=== PATIENT | male | born 1975 | race Caucasian/White ===

== ENCOUNTER → 2017-01-05 | Outpatient (CLI) | payer BC ==
--- NOTE | 2017-01-06 10:21 | ECHOF ---
Referral Reason:R06.00 Dyspnea, R07.9 Chest pain MEASUREMENTS -------- HEIGHT: 180.3 cm WEIGHT: 124.7 kg BP: 131/70 IVSd: 1.2 cm (0.6 - 1.1) LVIDd: 4.2 cm (3.9 - 5.3) LVPWd: 1.2 cm (0.6 - 1.1) IVSs: 1.8 cm LVIDs: 2.3 cm LVPWs: 1.9 cm Ao Diam: 3.1 cm (2.0 - 3.7) AV Cusp: 2.3 cm (1.5 - 2.6) LA Diam: 3.4 cm (2.7 - 3.8) MV EXCURSION: 17.007 mm (> 18.000) MV EF SLOPE: 125 mm/s (70 - 150) EPSS: 0.2 cm MV E Juno: 0.66 m/s MV DecT: 291 ms MV A Juno: 0.39 m/s MV E/A Ratio: 1.68 RAP: 5.00 mmHg RVSP: 17.87 mmHg FINDINGS -------- Sinus rhythm. This was a technically good study. There is mild concentric left ventricular hypertrophy. Overall left ventricular systolic function is normal with, an EF between 55 - 60 %. The right ventricle is normal in size and function. The left atrium is normal in size. The right atrium is normal in size. The aortic valve is trileaflet and appears structurally normal. There is trace to mild mitral regurgitation. Trace tricuspid regurgitation present. The right ventricular systolic pressure, as measured by Doppler, is 17.87mmHg. Pulmonic valve appears structurally normal. The aortic root size is normal. The pericardium is normal. CONCLUSIONS -------- 1. Sinus rhythm. 2. Trace tricuspid regurgitation present. 3. The right ventricular systolic pressure, as measured by Doppler, is 17.87mmHg. 4. Pulmonic valve appears structurally normal. 5. The aortic root size is normal. 6. The pericardium is normal. 7. This was a technically good study. 8. There is mild concentric left ventricular hypertrophy. 9. Overall left ventricular systolic function is normal with, an EF between 55 - 60 %. 10. The right ventricle is normal in size and function. 11. The left atrium is normal in size. 12. The right atrium is normal in size. 13. The aortic valve is trileaflet and appears structurally normal. 14. There is trace to mild mitral regurgitation. AREA COUNSELOR: Lilian Smith RDCS
== END | disposition home or self-care (01) ==
LOC: RADECHMAIN 15:33
PROVIDERS: ATTEND Family Medicine
DX: I08.1 Rheumatic disorders of both mitral and tricuspid valves (principal)
CPT/HCPCS: 93306

== ENCOUNTER → 2017-01-17 | Outpatient (CLI) | payer BC ==
--- NOTE | 2017-01-17 11:35 | ECHOS ---
DATE OF SERVICE: 01/17/2017 AGE: 41Y SEX: M HT: 72 WT: 278 lbs. Protocol Khai: X Others: Stress Echo Stage: IV Dur. of Exercise: 9:30 *Heart Rate Blood Pressure *Rest: 82 Rest: 111/59 * *Max. Achieved: 161 Maximum BP: 160/70 85% PMHR: 153 100% PMHR: 180 *METS: 10.4 INDICATIONS: Chest pain. MEDICATIONS: Patient was exercised for a total period of 9 minutes and 30 seconds. Peak heart rate of 161 was achieved. Maximum blood pressure 160/70 mmHg was noted. Resting EKG shows normal sinus rhythm with normal AK interval and QRS duration and normal ST-T waves. No ST segment depression suggestive of ischemia is noted. No dysrhythmias are noted. The baseline echocardiographic images reveal normal left ventricular chamber size with normal left ventricular systolic function. In the immediate postexercise period, normal increase in the wall thickness and contractility is noted. FINAL IMPRESSION: This stress echocardiographic study is negative for stress-induced ischemia. Patient's exercise tolerance is normal. EKG portion of the stress test is not suggestive of ischemia.
== END | disposition home or self-care (01) ==
LOC: RADNMMAIN 09:43
PROVIDERS: ATTEND Family Medicine
DX: R06.00 Dyspnea, unspecified (principal)
CPT/HCPCS: 93350; 93017; Q9957

== ENCOUNTER → 2018-12-21 | Outpatient (CLI) | payer BC ==
--- NOTE | 2018-12-21 10:57 | XR ---
EXAMINATION TYPE: XR orbit detect foreign body DATE OF EXAM: 12/21/2018 COMPARISON: NONE HISTORY: Pre-MRI orbit TECHNIQUE: 3 views of the orbits submitted FINDINGS: No metallic foreign body overlying the orbits. Osseous structures intact. IMPRESSION: No metallic body overlying the orbits.
== END | disposition home or self-care (01) ==
LOC: RADXRMAIN 10:28
PROVIDERS: ATTEND Orthopaedic Surgery
DX: Z01.818 Encounter for other preprocedural examination (principal); Z87.821 Personal history of retained foreign body fully removed
CPT/HCPCS: 70030

== ENCOUNTER → 2019-08-08 | Outpatient (CLI) | payer BC ==
--- NOTE | 2019-08-08 09:28 | US ---
EXAMINATION TYPE: US gallbladder DATE OF EXAM: 08/08/2019 COMPARISON: NONE CLINICAL HISTORY: R10.11 Rt Upper quadrant Pain. EXAM MEASUREMENTS: Liver Length: 17.9 cm Gallbladder Wall: 0.2 cm CBD: 0.4 cm Right Kidney: 11.7 x 4.7 x 5.4 cm Patient of large body habitus with severe overlying bowel gas, technically difficult study. Pancreas: Obscured by bowel gas Liver: Increased attenuation, decreased visualization of vessels suggestive of fatty infiltrate, upp er limits of normal in size. Gallbladder: wnl somewhat limited visualization Evidence for sonographic Pritchard's sign: no CBD: wnl Right Kidney: Inferior pole obscured by overlying bowel gas IMPRESSION: Sonographic findings most commonly related to hepatic steatosis. Correlate with liver fun ction tests. No sonographic evidence of cholelithiasis nor acute cholecystitis. Pancreas is obscured by bowel gas.
== END | disposition home or self-care (01) ==
LOC: RADUSWWP 08:18
PROVIDERS: ATTEND Nurse Practitioner Family
DX: K76.0 Fatty (change of) liver, not elsewhere classified (principal)
CPT/HCPCS: 76705

== ENCOUNTER → 2019-08-27 | Outpatient (CLI) | payer BC ==
--- NOTE | 2019-08-28 08:21 | CT ---
EXAMINATION TYPE: CT abdomen pelvis wo/w con DATE OF EXAM: 08/27/2019 COMPARISON: None HISTORY: RUQ pain CT DLP: 2904 mGycm CONTRAST: CT scan of the abdomen and pelvis is performed with Oral Contrast and without and with IV Contrast, p atient injected with 100 mL of Isovue 300. FINDINGS: LUNG BASES-: 7.4 mm nodule lateral segment right middle lobe. Additional 5.8 mm nodule left lower lob e. Dedicated CT of the chest is recommended for further evaluation. No infiltrate. LIVER/GB: No calcified gallstones. Subcentimeter cyst anterior segment right hepatic lobe inferiorl y. Biliary tree is of normal caliber. PANCREAS: No inflammation. No distinct mass. SPLEEN: No splenic enlargement. No lesion seen. ADRENALS: No nodule. No thickening. KIDNEYS/BLADDER: No hydronephrosis. No nephrolithiasis. Simple cyst midpole left kidney laterally m easuring 1.1 cm. Urinary bladder grossly unremarkable. BOWEL: Normal appendix. Normal bowel caliber. No inflammation. GENITAL ORGANS: No gross abnormality. LYMPH NODES: No greater than 1cm abdominal or pelvic lymph nodes are appreciated. AORTA: No significant abnormality. OSSEOUS STRUCTURES: No significant abnormality is seen. OTHER: No significant additional abnormality is seen. IMPRESSION: 1. 7.4 mm nodule lateral segment right middle lobe. Additional 5.8 mm nodule left lower lobe. Dedicat ed CT of the chest is recommended for further evaluation. 2. Simple cyst in the left kidney as well as a small simple cyst of the liver.
== END | disposition home or self-care (01) ==
LOC: RADCTMAIN 13:55
PROVIDERS: ATTEND Family Medicine
DX: N28.1 Cyst of kidney, acquired (principal); K76.89 Other specified diseases of liver
CPT/HCPCS: 74178; Q9967

== ENCOUNTER → 2019-09-05 | Outpatient (CLI) | payer BC ==
--- NOTE | 2019-09-05 08:18 | CT ---
EXAMINATION TYPE: CT chest wo/w con DATE OF EXAM: 09/05/2019 COMPARISON: 08/27/2019 HISTORY: Abn CT abd pelvis CT DLP: 1195.3 mGycm. Automated Exposure Control for Dose Reduction was Utilized. TECHNIQUE: CT scan of the thorax is performed following without and with IV Contrast, patient inject ed with 100 mL of Isovue 300. FINDINGS: LUNGS: There is redemonstration of a solid 7 mm pulmonary nodule in the lateral segment of the right middle lobe and a solid 5 mm nodule in the superior segment of the left lower lobe on image 33. MEDIASTINUM: There are no greater than 1 cm hilar or mediastinal lymph nodes. No pericardial effusi on is seen. OTHER: No additional significant abnormality is seen. Small splenules are incidentally seen. Minimal multilevel degenerative change of the spine. IMPRESSION: The 7 mm and 5 mm pulmonary nodule seen on the CT abdomen and pelvis dated 08/27/2019 are the only nod ules identified within the lungs on for CT thorax. For multiple nodules of this size CT Thorax at 3-6 months then 18-24 months would be recommended for interval follow-up utilizing consensus criteria.
== END | disposition home or self-care (01) ==
LOC: RADCTMAIN 07:25
PROVIDERS: ATTEND Nurse Practitioner Family
DX: R91.8 Other nonspecific abnormal finding of lung field (principal)
CPT/HCPCS: 71270; Q9967

== ENCOUNTER → 2020-04-02 | Outpatient (CLI) | payer BC ==
--- NOTE | 2020-04-02 07:48 | CT ---
EXAMINATION TYPE: CT chest wo con DATE OF EXAM: 04/02/2020 COMPARISON: 09/05/2019 HISTORY: Multiple lung nodules CT DLP: 565.[address] of the chest was performed with lung and mediastinal window settings submitted. The la ck of contrast limits evaluation of the vascular, mediastinal and parenchymal structures including th e upper abdomen. LUNGS: There is redemonstration of a solid 7 mm pulmonary nodule in the lateral segment of the right middle lobe and a solid 5 mm nodule in the superior segment of the left lower lobe on image 32. No ne w pulmonary nodules identified. No evidence for infiltrate or mass. No volume loss or pleural effusio n. MEDIASTINUM/SCARLET: Thoracic aorta is of normal caliber with limited evaluation given lack of contrast . The heart is not enlarged. No evidence for mediastinal mass. No lymph nodes greater than 1cm. UPPER ABDOMEN: No significant abnormality is seen. OTHER: No significant other abnormality. IMPRESSION: 1. Stable pulmonary nodules. Follow-up in 12 months advised.
== END | disposition home or self-care (01) ==
LOC: RADCTMAIN 06:53
PROVIDERS: ATTEND Family Medicine
DX: R91.8 Other nonspecific abnormal finding of lung field (principal)
CPT/HCPCS: 71250

== ENCOUNTER → 2020-04-30 | Outpatient (CLI) | payer BC ==
--- NOTE | 2020-04-30 14:46 | US ---
EXAMINATION TYPE: US thyroid st tissue head/neck DATE OF EXAM: 04/30/2020 COMPARISON: NONE CLINICAL HISTORY: R22.1 Lump finding of the neck. At patients palpable is a probable lymph node measuring 1.2 x 0.6 x 0.9cm IMPRESSION: Lymph node noted at the site of clinical concern.
== END | disposition home or self-care (01) ==
LOC: RADUSWWP 14:12
PROVIDERS: ATTEND Family Medicine
DX: R22.1 Localized swelling, mass and lump, neck (principal)
CPT/HCPCS: 76536

== ENCOUNTER → 2021-03-08 | Outpatient (CLI) | payer BC ==
--- NOTE | 2021-03-09 05:46 | MR ---
EXAMINATION TYPE: MR shoulder RT wo con DATE OF EXAM: 03/08/2021 COMPARISON: None HISTORY: Rt shoulder pain, Decreased range of motion, unable to lift past shoulder level Multiplanar multiecho imaging of the right shoulder with no contrast. The subscapularis tendon is intact. Biceps tendon is intact. Glenoid zuleyka appear normal. I see no justino ny destructive process. Humeral head is intact. There is fairly normal signal pattern in the supraspi natus tendon. I see no evidence of rotator cuff tear. Joint fluid appears normal. There is no evidenc e of any significant subacromial impingement. The AC joint is intact. IMPRESSION: Negative exam. No evidence of rotator cuff tear.
== END | disposition home or self-care (01) ==
LOC: RADMRIMAIN 07:58
PROVIDERS: ATTEND Family Medicine
DX: M25.511 Pain in right shoulder (principal)

== ENCOUNTER 2023-01-19 08:38 | Day surgery (SDC) | payer BC ==
--- NOTE | 2023-01-19 07:55 | P.GSHP ---
History of Present Illness H&P Date: 01/19/23 CHIEF COMPLAINT: GERD and colon screen HISTORY OF PRESENT ILLNESS: The patient is a 47-year-old male who presents with gastroesophageal reflux disease and need for colon screen. Upper and lower endoscopy were offered for further evaluation and management. PAST MEDICAL HISTORY: Please see list. PAST SURGICAL HISTORY: Please see list. MEDICATIONS: Please see list. ALLERGIES: Please see list. SOCIAL HISTORY: No illicit drug use FAMILY HISTORY: No reports of Crohn disease or ulcerative colitis. REVIEW OF ORGAN SYSTEMS: CONSTITUTIONAL: No reports of fevers or chills. GI: Denies any blood in stools or constipation. PHYSICAL EXAM: VITAL SIGNS: Stable GENERAL: Well-developed pleasant in no acute distress. HEENT: No scleral icterus. Extraocular movements grossly intact. Moist buccal mucosa. NECK: Supple without lymphadenopathy. CHEST: Unlabored respirations. Equal bilateral excursions. CARDIOVASCULAR: Regular rate and rhythm. Distal 2+ pulses. ABDOMEN: Soft, nondistended. MUSCULOSKELETAL: No clubbing, cyanosis, or edema. ASSESSMENT: 1. Gastroesophageal reflux disease 2. Colon screen. PLAN: 1. Recommend proceeding with an upper and lower endoscopy Past Medical History Past Medical History: Asthma, GERD/Reflux, Hyperlipidemia, Sleep Apnea/CPAP/BIPAP Additional Past Medical History / Comment(s): seasonal allergies. wears cpap History of Any Multi-Drug Resistant Organisms: None Reported Past Surgical History: Tonsillectomy Additional Past Surgical History / Comment(s): arthroscopic procedure rt shoulder 2021, wisdom teeth removed. Past Anesthesia/Blood Transfusion Reactions: No Reported Reaction Smoking Status: Former smoker - Past Family History Mother Family Medical History: COPD Medications and Allergies Home Medications Medication Instructions Recorded Confirmed Type Escitalopram [Lexapro] 20 mg PO HS 01/17/23 01/17/23 History Ibuprofen [Motrin] 800 mg PO Q8H PRN 01/17/23 01/17/23 History Montelukast [Singulair] 10 mg PO DAILY 01/17/23 01/17/23 History Omeprazole 40 mg PO HS 01/17/23 01/17/23 History Rosuvastatin Calcium 10 mg PO HS 01/17/23 01/17/23 History Unk Co Q10 1 tab PO DAILY 01/17/23 01/17/23 History Unk Krill Oil 1 tab PO DAILY 01/17/23 01/17/23 History Unk Multi Vitamin 1 tab PO DAILY 01/17/23 01/17/23 History Unk Vitamin B12 1 tab PO DAILY 01/17/23 01/17/23 History Unk Vitamin C 1 tab PO DAILY 01/17/23 01/17/23 History Unk Vitamin D3 1 tab PO DAILY 01/17/23 01/17/23 History Allergies Allergy/AdvReac Type Severity Reaction Status Date / Time bupropion [From Wellbutrin] Allergy Rash/Hives Verified 01/17/23 10:55
[2023-01-19] MEDS ORDERED: HYDROmorphone 0.5 MG/0.5 ML SYRINGE IVP PRN (08:48)
[2023-01-19] MEDS ORDERED: SCOPOLAMINE 1 MG/72 HR PATCH TRANSDERM ONE (08:48)
[2023-01-19] MEDS ORDERED: ONDANSETRON 4 MG/2 ML VIAL IVP ONE (08:48)
[2023-01-19] MEDS ORDERED: MIDAZOLAM 2 MG/2 ML VIAL IV PRN (08:48)
[2023-01-19] MEDS ORDERED: DEXAMETHASONE SOD PHOSPHATE 4 MG/ML 1 ML VIAL IV ONE (08:48)
[2023-01-19 09:11] VITALS: TEMP 98
[2023-01-19] MEDS: LACTATED RINGERS 1,000 ML IV SCH ×2 (09:11→09:27)
[2023-01-19] MEDS ORDERED: PROPOFOL 10 MG/ML 20 ML VIAL IV ONE (09:25)
[2023-01-19] MEDS ORDERED: fentaNYL (PF) 50 MCG/ML 2 ML AMP ONE (09:25)
[2023-01-19] MEDS ORDERED: LIDOCAINE 2% INJ 20 MG/ML (2 ML VIAL) ONE (09:25)
[2023-01-19] MEDS ORDERED: MIDAZOLAM 2 MG/2 ML VIAL ONE (09:25)
--- NOTE | 2023-01-19 09:43 | P.PCN ---
Date of Procedure: 01/19/23 Description of Procedure: PREOPERATIVE DIAGNOSIS: Anemia Gastroesophageal reflux disease. Morbid obesity. POSTOPERATIVE DIAGNOSIS: Anemia Gastroesophageal reflux disease. Morbid obesity. Gastritis. OPERATION: Esophagogastroduodenoscopy with biopsies along antrum. SURGEON: Regina Forrester MD ANESTHESIA: MAC. INDICATIONS: The patient is a 47-year-old male who presents with reflux disease. Benefits and risks of the procedure were described. Informed consent was obtained. DESCRIPTION: The patient was brought into the endoscopy suite and laid in the left lateral decubitus position. An Olympus gastroscope was passed along the posterior oropharynx down to the distal esophagus where the squamocolumnar junction was encountered at 40 cm from the incisors. The stomach was entered and no bile reflux was found. Additional findings are listed below. Biopsies with cold forceps were obtained of the antrum. The first through third portion of the duodenum was examined. Retroflexion of the scope confirmed Hill grade 2 lower esophageal valve. The squamocolumnar junction demonstrated LA grade B erosive esophagitis. The stomach was desufflated. The patient tolerated the procedure well. FINDINGS: Squamocolumnar junction 40 cm from the incisors. Diaphragmatic hiatus at 40 cm. Hill grade 4 lower esophageal valve. LA grade B erosive esophagitis. Biopsies obtained of the duodenum. Chronic gastritis with biopsies obtained. RECOMMENDATIONS: Upper endoscopy as needed.
[2023-01-19 10:07] VITALS: RESP 16
[2023-01-19 10:22] VITALS: BP 134/84; PULSE 70
--- NOTE | 2023-01-19 10:37 | P.PCN ---
Date of Procedure: 01/19/23 Description of Procedure: PREOPERATIVE DIAGNOSIS: Anemia POSTOPERATIVE DIAGNOSIS: Anemia OPERATION: Colonoscopy to the cecum, ileocecal valve and appendiceal orifice. SURGEON: Regina Forrester MD. ANESTHESIA: MAC. INDICATIONS: The patient is a 60-year-old female who presents for colonoscopy screening. Benefits and risks were described and informed consent was obtained. DESCRIPTION OF PROCEDURE: The patient had undergone Sutab prep. The patient had been brought into the operating room and laid in the left lateral decubitus position. After adequate intravenous sedation, the rectum was examined with 2% lidocaine jelly. No external hemorrhoids were encountered. The rectal tone was within normal limits. No lesions were palpated in the rectal vault. An Olympus colonoscope was advanced until the cecum, ileocecal valve and appendiceal orifice were clearly viewed. The prep was excellent. No scattered diverticulosis was encountered. No colonic polyps were found. No evidence of focal colitis was found. Retroflexion of the scope demonstrated grade 1 internal hemorrhoids without active bleeding or inflammation. The colon was desufflated. The patient had tolerated the procedure well. Withdrawal time was over 6 minutes. FINDINGS: Aronchick preparation quality scale (1-5) Internal hemorrhoids, grade 1 No external prolapsed hemorrhoids. No arteriovenous malformations. No adenomatous polyps. No focal colitis. RECOMMENDATIONS: Lower endoscopy in 10 years, 2032 Plan - Discharge Summary Discharge Rx Participant: No New Discharge Prescriptions: Continue Ibuprofen [Motrin] 800 mg PO Q8H PRN PRN Reason: Pain Omeprazole 40 mg PO HS Unk Vitamin D3 1 tab PO DAILY Unk Vitamin C 1 tab PO DAILY Unk Multi Vitamin 1 tab PO DAILY Unk Krill Oil 1 tab PO DAILY Unk Co Q10 1 tab PO DAILY Rosuvastatin Calcium 10 mg PO HS Montelukast [Singulair] 10 mg PO DAILY Escitalopram [Lexapro] 20 mg PO HS Unk Vitamin B12 1 tab PO DAILY Discharge Medication List Escitalopram [Lexapro] 20 mg PO HS 01/17/23 [History] Ibuprofen [Motrin] 800 mg PO Q8H PRN 01/17/23 [History] Montelukast [Singulair] 10 mg PO DAILY 01/17/23 [History] Omeprazole 40 mg PO HS 01/17/23 [History] Rosuvastatin Calcium 10 mg PO HS 01/17/23 [History] Unk Co Q10 1 tab PO DAILY 01/17/23 [History] Unk Krill Oil 1 tab PO DAILY 01/17/23 [History] Unk Multi Vitamin 1 tab PO DAILY 01/17/23 [History] Unk Vitamin B12 1 tab PO DAILY 01/17/23 [History] Unk Vitamin C 1 tab PO DAILY 01/17/23 [History] Unk Vitamin D3 1 tab PO DAILY 01/17/23 [History] Follow up Appointment(s)/Referral(s): Regina Forrester MD [STAFF PHYSICIAN] - As Needed Patient Instructions/Handouts: Gastritis (DC), Moderate Sedation (ED), Colonoscopy (DC) Activity/Diet/Wound Care/Special Instructions: Repeat colonoscopy 10 years2032 Discharge Disposition: HOME SELF-CARE
== END 2023-01-19 10:45 | disposition home or self-care (01) ==
LOC: ORWHC2ENDO 08:38
PROVIDERS: ATTEND Surgery Plastic and Reconstructive Surgery
DX: K29.50 Unspecified chronic gastritis without bleeding (principal); K21.00 Gastro-esophageal reflux disease with esophagitis, without bleeding; K64.0 First degree hemorrhoids; D64.9 Anemia, unspecified; E66.01 Morbid (severe) obesity due to excess calories; E78.5 Hyperlipidemia, unspecified; G47.33 Obstructive sleep apnea (adult) (pediatric); Z90.89 Acquired absence of other organs; Z87.891 Personal history of nicotine dependence; Z88.8 Allergy status to other drugs, medicaments and biological substances; Z79.899 Other long term (current) drug therapy
CPT/HCPCS: 88305; 45378; 43239; J2250; J3010; J2704; J2001

== ENCOUNTER → 2023-12-04 | Outpatient (CLI) | payer BC ==
--- NOTE | 2023-12-04 11:21 | CA ---
Exercise Stress Test Report Name: Kevin Dietz Exam Date: 12/04/2023 09:02 Exam Location: [place] [facility] Stress Ht (in): 72 Wt (lb): 264 BSA: 2.40 Ordering Phys: Tommy Ramirez MD Referring Phys: Tommy Ramirez MD Technologist: Bisi Mckee RDCS Age: 48 Gender: M : 1975 Procedure CPT: Indications: R00.2 palpitations ICD-10 Codes: Patient History: Medications: SEE LIST Meds past 24 hrs: Pretest Chest Pain: STRESS TEST Khai Protocol Exercise Duration (min:sec): 10:[address] Depressions (mm): Angina Score: Copeland Score: Resting HR (bpm): 91 Peak HR (bpm): 155 Resting BP (mmHg): 129 / 90 Peak BP (mmHg): 179 / 79 MPHR: 173 Target HR: 147 % MPHR: 90 METS: 12.1 Total Dose: Peak Dose: Atropine: Double Product: 35656 BP Response: Stress Termination: Reached target heart rate Stress Symptoms: NO SYMPTOMS Stress Summary: ECG ANALYSIS Resting ECG: Stress ECG: CONCLUSIONS Excellent exercise tolerance Normal electrocardiogram stress test Dr. Neftaly Flores MD (Electronically Signed) Final Date: 04 Dec 2023 11:20
== END | disposition home or self-care (01) ==
LOC: RADECHMAIN 08:26
PROVIDERS: ATTEND Family Medicine
DX: R00.2 Palpitations (principal)
CPT/HCPCS: 93017; 93270

== ENCOUNTER → 2024-05-01 | Outpatient (CLI) | payer BC ==
[2024-05-01 14:13] VITALS: BP 119/78; PULSE 82; RESP 16; TEMP 98
--- NOTE | 2024-05-01 14:55 | P.SLEEP ---
History of Present Illness DATE: 05/01/2024 CONSULTATION/NEW PATIENT EVALUATION HISTORY OF PRESENT ILLNESS/SLEEP-WAKE EVALUATION: 49-year-old gentleman had been evaluated in the sleep center for obstructive sleep apnea hypopnea syndrome. Patient has history of obstructive sleep apnea for about 17 years. Last CPAP unit he received about 4 years ago. At that time he had home sleep apnea test which was done by another institution. I checked CPAP unit pressure is 11 cm of water, usage is 99% of the nights, average 6.6 hours per night. Leak is 20 L/min which is acceptable. 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 FALLING ASLEEP: No problems with falling asleep. DURING SLEEP: Occasionally while using CPAP patient still has snoring and he may wake up from sleep up to 4 times with 2 episodes of nocturia. No history of hypnogogical hallucinations, sleep paralysis, or cataplexy. DURING THE DAY/WAKE STATE: In the morning patient wake up tired, has difficulties to pay attention, has problems with memory, concentration and anxiety. [place] sleepiness scale is 8. Usually patient does not take naps. PAST MEDICAL HISTORY: Depression, asthma, acid reflux, hyperlipidemia. PAST SURGICAL HISTORY: Right shoulder surgery. MEDICATIONS: Please see below. SOCIAL HISTORY: Please see below. FAMILY HISTORY: Hypertension, heart problems, during the sleep. REVIEW OF SYSTEMS: Occasional snoring on CPAP, awakenings from sleep. No fevers. No double vision. No recent chest pain. No shortness of breath. No abdominal pain. No bleeding episodes. No blood in urine. No seizure episodes. PHYSICAL EXAMINATION: GENERAL: A pleasant patient without any distress. VITAL SIGNS: Please see below, weight 266 pounds, BMI 38.1. HEENT: PERRLA, EOMI. Evaluation of oropharynx showed tongue protrudes midline, low position of soft palate Mallampati 4. NECK: Supple. No JVD. Thyroid is not palpable. 17.5 inches in circumference. LUNGS: Clear to percussion and to auscultation. Good air exchange. No wheezing or rhonchi. HEART: S1, S2 regular. No murmurs, gallops or rubs. ABDOMEN: Soft and nontender. Bowel sounds are present. No organomegaly appreciated. EXTREMITIES: No clubbing or cyanosis. POWER GENERATION ENGINEER: Awake, alert, and oriented x3. Cranial nerves 2 to 7 intact. There is no fasciculation or atrophy noted. No focal deficits observed. ASSESSMENT: 1. Obstructive sleep apnea hypopnea syndrome for about 17 years. Patient continued to use his CPAP equipment every night. Snoring occasional on CPAP, awakenings from sleep while on CPAP. Extremely low position of soft palate Mallampati 4, wide neck 17.5 inches in circumference. Obstructive sleep apnea hypopnea syndrome. 2. Obesity, BMI 38.1. 3. Asthma. 4. Hyperlipidemia. 5. Acid reflux. 6 . Depression. 7. Status post right shoulder surgery. 8. scene shifter worker. I adjusted regimen of CPAP to AutoPAP with a range of the pressure 5 to 13 cm of water. PLAN: 1. Prescription for all necessary CPAP supplies. 2. Patient will continue to use CPAP equipment every night for the whole night. 3. Preferable position during sleep on the side. 4. No driving if patient feels any sleepiness. Patient is aware of civil and criminal liability for unsafe driving. 5. Sleep hygiene with regular sleep time for at least 7.5-8 hours. 6. Watching and losing weight. 7. Will get results of previous sleep studies. 8. I will see patient in 3 months for evaluation of clinical response on changing of treatment regimen. Thank you very much for referring this patient for consultation. Sincerely, Dev Monroe MD, PhD, FAASM. Diplomat of [place] [employer], Sleep Medicine Board by [place] [employer] [employer] Radiation Therapy Technologist [facility] [place] cc: Tommy Ramirez MD Past Medical History Past Medical History: Asthma, GERD/Reflux, Hyperlipidemia, Sleep Apnea/CPAP/BIPAP Additional Past Medical History / Comment(s): seasonal allergies. wears cpap History of Any Multi-Drug Resistant Organisms: None Reported Past Surgical History: Orthopedic Surgery, Tonsillectomy Additional Past Surgical History / Comment(s): arthroscopic procedure rt shoulder 2021, wisdom teeth removed. Past Anesthesia/Blood Transfusion Reactions: No Reported Reaction Past Psychological History: Depression Smoking Status: Former smoker Past Alcohol Use History: Occasional Additional Past Alcohol Use History / Comment(s): smoked 25 yrs ago. light smoker. quit chewing tobacco 5 yrs ago. Past Drug Use History: None Reported - Past Family History Mother Family Medical History: COPD, GERD/Reflux Additional Family Medical History / Comment(s): lung problems Father Family Medical History: Coronary Artery Disease (CAD), Hypertension Additional Family Medical History / Comment(s): snoring, Angina, during sleep Sister(s) Family Medical History: Hyperlipidemia Medications and Allergies Home Medications Medication Instructions Recorded Confirmed Type Escitalopram [Lexapro] 20 mg PO HS 01/17/23 05/01/24 History Ibuprofen [Motrin] 800 mg PO Q8H PRN 01/17/23 01/17/23 History Montelukast [Singulair] 10 mg PO DAILY 01/17/23 05/01/24 History Omeprazole 40 mg PO HS 01/17/23 01/17/23 History Rosuvastatin Calcium 10 mg PO HS 01/17/23 05/01/24 History Unk Co Q10 1 tab PO DAILY 01/17/23 01/17/23 History Unk Krill Oil 1 tab PO DAILY 01/17/23 01/17/23 History Unk Multi Vitamin 1 tab PO DAILY 01/17/23 01/17/23 History Unk Vitamin B12 1 tab PO DAILY 01/17/23 01/17/23 History Unk Vitamin C 1 tab PO DAILY 01/17/23 01/17/23 History Unk Vitamin D3 1 tab PO DAILY 01/17/23 01/17/23 History Omeprazole [PriLOSEC] 40 mg PO DAILY 05/01/24 05/01/24 History Semaglutide [Wegovy] 0.25 mg SQ WEEKLY 05/01/24 05/01/24 History Allergies Allergy/AdvReac Type Severity Reaction Status Date / Time bupropion [From Wellbutrin] Allergy Rash/Hives Verified 01/17/23 10:55 Physical Exam Vitals: Vital Signs Temp Pulse Resp BP Pulse Ox 05/01/24 14:10 98 F 82 16 119/78 96 Intake and Output 04/30/24 05/01/24 05/01/24 22:59 06:59 14:59 Other: Weight 120.656 kg Sleep Note - Sleep Data ESS Total: 8 - Sleep Note Sleep Note: Temperature: 98 F Pulse Rate: 82 Respiratory Rate: 16 Blood Pressure: 119/78 SpO2: 96 Height: 5 ft 10 in Weight: 120.656 kg BMI: Neck Circumference: 17.5
== END ==
LOC: 3 N SLEEP 13:47
PROVIDERS: ATTEND Internal Medicine
CPT/HCPCS: 99211